=== PATIENT | male | born 1990 | race Caucasian/White ===

== ENCOUNTER 2017-06-13 08:08 | Emergency (ER) | payer MEDICAID ==
[2017-06-13 08:22] VITALS: BP 161/116
--- NOTE | 2017-06-13 08:28 | EDM.PDOC ---
ED HPI GENERAL MEDICAL PROBLEM - General Chief Complaint: ENT Problem Stated Complaint: TOOTH PAIN Time Seen by Provider: 06/13/17 08:22 Source of Information: Reports: Patient History Limitations: Reports: No Limitations - History of Present Illness INITIAL COMMENTS - FREE TEXT/NARRATIVE: 27-year-old male who had a partial extraction of his left lower wisdom tooth while he was in long-term 3 or 4 months ago has redeveloped pain in the area over the past 2-3 days. No fevers or chills, no significant swelling. He would like to establish some dental care here in [place], he's working full-time. He has no allergies. Onset: Gradual (Over the past 2-3 days) Severity: Moderate Associated Symptoms: Denies: Fever/Chills Left Lower Oral/Mouth Pain Score (Numeric/FACES): 10 - Related Data Allergies Allergy/AdvReac Type Severity Reaction Status Date / Time No Known Allergies Allergy Verified 06/13/17 08:20 Home Meds: Home Meds NK [No Known Home Meds] 06/13/17 [History] ED ROS ENT - Review of Systems Review Of Systems: See Below Constitutional: Denies: Fever, Chills Respiratory: Denies: Shortness of Breath GI/Abdominal: Denies: Abdominal Pain Neurological: Reports: Syncope (Pain was so bad he "blacked out") ED EXAM, ENT - Physical Exam Exam: See Below Exam Limited By: No Limitations General Appearance: Alert, No Apparent Distress (Not distressed but does appear uncomfortable) Mouth/Throat: Other (He has obvious dental caries in a few scattered areas, no significant percussion tenderness of the molars of the left mandible. No redness or swelling.) Course - Vital Signs Last Recorded V/S: Last Vital Signs Temp 95.7 F 06/13/17 08:20 Pulse 86 06/13/17 08:20 Resp 16 06/13/17 08:20 BP 161/116 H 06/13/17 08:20 Pulse Ox 96 06/13/17 08:20 - Re-Assessments/Exams Free Text/Narrative Re-Assessment/Exam: 06/13/17 08:29 I believe this patient's pain is coming from the partial extraction area and we will cover him with penicillin 4 times a day. I'm going to write a dental referral for morning, after 2 days of antibiotic treatment I think some dental x-rays would be helpful. He is planning on staying in the area so hopefully he can get that dental care on a consistent basis. He can use ibuprofen or naproxen as needed for pain control. Departure - Departure Time of Disposition: 08:44 Disposition: Home, Self-Care 01 Condition: Good Clinical Impression: Dental caries, Pain due to dental caries - Discharge Information Instructions: Dental Abscess, [id number] Referrals: PCP,None [Primary Care Provider] - Forms: ED Department Discharge Care Plan Goals: Take antibiotic 4 times a day, a regular dose of ibuprofen or naproxen along with Tylenol should cover you for pain. Dental referral is being written for this week. Hopefully you can be worked in at that time.
== END 2017-06-13 08:44 | disposition home or self-care (01) ==
LOC: JP.ED 08:08
DX: K02.9 Dental caries, unspecified (principal)
CPT/HCPCS: 99283

== ENCOUNTER 2021-01-09 10:36 | Emergency (ER) | payer MEDICAID ==
[2021-01-09 11:00] VITALS: BP 137/69; PULSE 73
[2021-01-09] MEDS ORDERED: Triamcinolone Acetonide 40 MG/ML 1 ML SDV IM ONE (11:42)
--- NOTE | 2021-01-09 11:48 | EDM.PDOC ---
ED HPI GENERAL MEDICAL PROBLEM - General Chief Complaint: Skin Complaint Stated Complaint: RASH/BUMPS ON BOTH LEGS Time Seen by Provider: 01/09/21 11:43 Source of Information: Reports: Patient History Limitations: Reports: No Limitations - History of Present Illness INITIAL COMMENTS - FREE TEXT/NARRATIVE: pt arrived with a rash on both legs. He has been wearing waders and putting docks in. He has a very angry rash behind both knees. He is having both itching and pain. Onset: Gradual Duration: Day(s): Location: Reports: Lower Extremity, Left, Lower Extremity, Right Associated Symptoms: Reports: No Other Symptoms - Related Data Allergies Allergy/AdvReac Type Severity Reaction Status Date / Time No Known Allergies Allergy Verified 01/09/21 10:52 Home Meds: Home Meds NK [No Known Home Meds] 06/13/17 [History] Past Medical History - Past Health History Medical/Surgical History: Denies Medical/Surgical History Social & Family History - Tobacco Use Tobacco Use Status *Q: Current Every Day Tobacco User Years of Tobacco use: 1 Packs/Tins Daily: 1 - Caffeine Use Caffeine Use: Reports: None ED ROS GENERAL - Review of Systems Review Of Systems: See Below Constitutional: Reports: No Symptoms HEENT: Reports: No Symptoms Respiratory: Reports: No Symptoms Cardiovascular: Reports: No Symptoms Endocrine: Reports: No Symptoms GI/Abdominal: Reports: No Symptoms : Reports: No Symptoms Musculoskeletal: Reports: Other ( rash behind both knees and on his feet. ) Skin: Reports: Rash ED EXAM, SKIN/RASH Exam: See Below Text/Narrative:: pt arrived with a rash behind both knees and on his feet. He has been in waders most of the day putting docks in,. Exam Limited By: No Limitations General Appearance: Alert, Mild Distress Ears: Normal External Exam Nose: Normal Inspection Throat/Mouth: Normal Inspection Head: Atraumatic Extremities: Other (pt has a red angry tender rash behind both knees. He has a similar rash on the dorsum of both feet. The rash both hurts and he has slight itching. ) Skin: Warm, Erythema, Excoriations, Other (this does not appear to be vescular. ) Location, Skin: Lower Extremity, Right, Lower Extremity, Left Course - Vital Signs Last Recorded V/S: Last Vital Signs Temp 36.3 C 01/09/21 10:57 Pulse 73 05/08/21 10:57 Resp 14 01/09/21 10:57 BP 137/69 01/09/21 10:57 Pulse Ox 97 01/09/21 10:57 - Orders/Labs/Meds Meds: Medications Discontinued Medications Generic Name Dose Route Start Last Admin Trade Name Ari PRN Reason Stop Dose Admin Triamcinolone Acetonide 60 mg 01/09/21 11:42 Triamcinolone Acetonide 40 Mg/Ml 1 Ml Sdv IM 01/09/21 11:43 ASDIRECTED ONE - Re-Assessments/Exams Free Text/Narrative Re-Assessment/Exam: 01/09/21 11:53 pt was given kenalog 60 mg im. Departure - Departure Time of Disposition: 11:45 Disposition: Home, Self-Care 01 Condition: Fair Clinical Impression: Contact dermatitis - Discharge Information Instructions: Contact Dermatitis, [id number] Referrals: PCP,None [Primary Care Provider] - Forms: ED Department Discharge Care Plan Goals: wear breathable clothing, soak in tub cooler water daily, kenalog cream to the affected areas tid. Use a occlusive dressing at nite, keflex 500mg tid, no work with waders for 5 days. Sepsis Event Note (ED) - Evaluation Sepsis Screening Result: No Definite Risk - Focused Exam Vital Signs: Vital Signs Temp Pulse Resp BP Pulse Ox 01/09/21 10:57 36.3 C 73 14 137/69 97
== END 2021-01-09 11:59 | disposition home or self-care (01) ==
LOC: JP.ED 10:36
DX: L25.9 Unspecified contact dermatitis, unspecified cause (principal); Z72.0 Tobacco use
CPT/HCPCS: 96372; 99282; J3301; 99283

== ENCOUNTER 2021-04-06 19:14 | Emergency (ER) | payer MEDICAID ==
[2021-04-06 20:05] VITALS: BP 132/80; PULSE 72
[2021-04-06] MEDS ORDERED: Ketorolac 30 MG/ML SDV IM ONE (20:47)
--- NOTE | 2021-04-06 20:51 | EDM.PDOC ---
ED HPI GENERAL MEDICAL PROBLEM - General Chief Complaint: Upper Extremity Injury/Pain Stated Complaint: R SHOULDER AND RIB PAIN Time Seen by Provider: 04/06/21 20:36 Source of Information: Reports: Patient, RN Notes Reviewed History Limitations: Reports: No Limitations - History of Present Illness INITIAL COMMENTS - FREE TEXT/NARRATIVE: 31-year-old gentleman presents emergency department day complaint of right shoulder pain, he injured himself about a week ago he still has full range of motion of his arm but the pain is really gotten worse over the last couple days and now is noticed some numbness and tingling in his fingertips which gets significantly worse when he fully outstretched his arm. 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 and from his description the mechanism sounds like the shoulder was twisted and stretched concern for brachial plexus injury Right Arm Pain Score (Numeric/FACES): 10 - Related Data Allergies Allergy/AdvReac Type Severity Reaction Status Date / Time No Known Allergies Allergy Verified 04/06/21 20:03 Home Meds: Home Meds NK [No Known Home Meds] 06/13/17 [History] Past Medical History Musculoskeletal History: Reports: Fracture Neurological History: Reports: Head Trauma - Infectious Disease History Infectious Disease History: Reports: Chicken Pox Social & Family History - Tobacco Use Tobacco Use Status *Q: Current Every Day Tobacco User Years of Tobacco use: 16 Packs/Tins Daily: 1 - Caffeine Use Caffeine Use: Reports: Energy Drinks - Alcohol Use Number of Drinks Per Day: 1 - Recreational Drug Use Recreational Drug Use: Yes Recreational Drug Type: Reports: Marijuana/Hashish Review of Systems - Review of Systems Review Of Systems: See Below Musculoskeletal: Reports: Shoulder Pain Neurological: Reports: Numbness, Tingling ED EXAM, GENERAL - Physical Exam Exam: See Below Free Text/Narrative:: Examination the shoulder he has full range of motion of the shoulder however in certain positions when he twists his neck a certain way and outstretched hand will increase numbness and tingling in the digits, radial pulses +2 Exam Limited By: No Limitations General Appearance: Alert, WD/WN, No Apparent Distress Course - Vital Signs Last Recorded V/S: Last Vital Signs Temp 98.0 F 04/06/21 20:10 Pulse 72 04/06/21 20:10 Resp 16 04/06/21 20:10 BP 132/80 04/06/21 20:10 Pulse Ox 99 04/06/21 20:10 - Orders/Labs/Meds Orders: Active Orders 24 hr Category Date Time Status Ketorolac [Toradol] Med 04/06/21 20:47 Once 30 mg IM ONETIME ONE Medication Orders Ketorolac Tromethamine (Ketorolac 30 Mg/Ml Sdv) 30 mg IM ONETIME ONE Stop: 04/06/21 20:48 Meds: Medications Generic Name Dose Route Start Last Admin Trade Name Ari PRN Reason Stop Dose Admin Ketorolac Tromethamine 30 mg 04/06/21 20:47 Ketorolac 30 Mg/Ml Sdv IM 04/06/21 20:48 ONETIME ONE Departure - Departure Time of Disposition: 20:50 Disposition: Home, Self-Care 01 Condition: Fair Clinical Impression: Right shoulder pain Qualifiers: Chronicity: acute Qualified Code(s): M25.511 - Pain in right shoulder Brachial plexus injury, right Qualifiers: Encounter type: initial encounter Qualified Code(s): S14.3XXA - Injury of brachial plexus, initial encounter - Discharge Information Instructions: Shoulder Pain, Burner or Stinger Nerve Injury Referrals: PCP,None [Primary Care Provider] - Additional Instructions: Try the hydrocodone as needed for pain control mainly to help with sleep, please call to the [facility] in the morning for an appointment time for primary care with further evaluation call return to the emergency department worsening symptoms Sepsis Event Note (ED) - Evaluation Sepsis Screening Result: No Definite Risk - Focused Exam Vital Signs: Vital Signs Temp Pulse Resp BP Pulse Ox 04/06/21 20:10 98.0 F 72 16 132/80 99 04/06/21 20:03 98.0 F 72 16 132/80 99 - My Orders Last 24 Hours: My Active Orders 04/06/21 20:47 Ketorolac [Toradol] 30 mg IM ONETIME ONE - Assessment/Plan Last 24 Hours: My Active Orders 04/06/21 20:47 Ketorolac [Toradol] 30 mg IM ONETIME ONE Plan: Assessment Acuity = acute Site and laterality = right shoulder pain Etiology = concern for brachial plexus injury possibly an avulsion Manifestations = none Location of injury = Home Lab values = none Plan I did talk to him about options waiting to treat his pain with hydrocodone 5/325 1 tab p.o. 3 times daily as needed total #10 this gentleman would probably benefit from an MRI for making the diagnosis and then physical therapy. I have also set him up with establishment for a primary care provider at the [facility] This note was dictated using [employer] voice recognition software please call with any questions on syntax or grammar.
== END 2021-04-06 21:22 | disposition home or self-care (01) ==
LOC: JP.ED 19:14
DX: S14.3XXA Injury of brachial plexus, initial encounter (principal); Z72.0 Tobacco use; W55.22XA Struck by cow, initial encounter
CPT/HCPCS: 96372; 99283; J1885